=== PATIENT | female | born 1935 | race African-American/Black ===

== ENCOUNTER 2016-08-25 00:58 | Emergency (ER) | payer MEDICARE, OTHER ==
[~2016-08-25] VITALS: Ht 152.4 cm; Wt 60.0 kg
[2016-08-25 01:00] VITALS: Ht 152.4 cm; Wt 60.0 kg
--- NOTE | 2016-08-25 02:10 | ERA ---
ER Documentation Chief Complaint Date/Time DATE: 08/25/16 TIME: On arrival Chief Complaint Cardiac arrest HPI The patient is a 84-year-old female, presenting to the ER because of cardiac arrest. The history was initially obtained from the echocardiography radiology technologist, later obtained from the [id number] who came to the ER. The [id number] came home and saw the patient on the ground unconscious. She called 911 and was asked to start CPR until the EMS arrived. The EMS arrived approximately 5-10 minutes later. The echocardiography radiology technologist administer epinephrine 2 mg IV and possibly had a pulse for short time. It took the echocardiography radiology technologist about 15 minutes to arrive to the ER. She arrived to the ER pulseless, CPR was in progress. She was immediately transported to room #4. She was intubated immediately with any difficulty. There were so much thick secretions and food particles inside the oral cavity during intubation. Past medical history: CAD, ventral hernia Past surgical history: CABG, pacemaker ROS All systems reviewed and are negative except as per history of present illness. Physical Exam Physical Exam Const: CPR is in progress Head: Atraumatic. ENT: Normal External Ears, Nose and Mouth. Neck: No crepitus Resp: Clear to auscultation anteriorly and laterally with Ambu bag Cardio: Asystole Abd: Distended with ventral hernia Skin: Cyanotic Ext: Cyanotic Procedures/MDM MEDICAL MAKING DECISION: The patient is a 84-year-old female, presenting with cardiac arrest, unknown downtime. She was treated with epinephrine 1 mg IV 2 by EMS the last 15 minutes prior to arrival, Accu-Chek was 102 She remains asystole on the monitor. CPR was in progress She was treated with epinephrine 1 mg IV 8 approximately 3 minutes apart, one ampule sodium bicarb IV, 1 ampule D50. She did not responded to the aforementioned treatment. The [id number] was present at the bedside during resuscitation The code started at 12:57 AM when she arrived and terminated at 1:22 AM Endotracheal Intubation by me: Pre assessment performed. See preceding note for details. Pre-oxygenation performed with 100% oxygen RSI: Performed w/o complication or hypoxic events. Medications as ordered. Blade: [place] 4 ET Tube: 7.5 cm Depth: 21cm at the lip Intubation confirmed by colorimetric CO2, equal breath sounds, quiet over the stomach. Departure Diagnosis: Primary Impression: Cardiac arrest Comments The patient TYRONE LANG MD Aug 25, 2016 02:10
== END 2016-08-25 06:23 | disposition expired ==
LOC: E/R 00:58
DX: I46.9 Cardiac arrest, cause unspecified (principal); I25.10 Atherosclerotic heart disease of native coronary artery without angina pectoris; Z95.1 Presence of aortocoronary bypass graft; Z95.0 Presence of cardiac pacemaker
CPT/HCPCS: 92950